=== PATIENT | female | born 1990 | race Caucasian/White ===

== ENCOUNTER 2020-03-24 22:24 | Emergency (ER) | payer OTHER ==
[~2020-03-24] VITALS: Ht 165.1 cm; Wt 74.8 kg
[2020-03-24] MEDS ORDERED: THERA-M CAPLET1 EAC2 PO (22:34)
[2020-03-24 23:06] LABS: AMP/METHAMP POSITIVE (Negative); BARBITURATES Negative (Negative); BENZODIAZEPINES Negative (Negative); COCAINE Negative (Negative); METHADONE Negative (Negative); OPIATES Negative (Negative); PCP Negative (Negative); THC POSITIVE (Negative)
[2020-03-24] MEDS ORDERED: TRAMADOL 50 MG50 MG PO (23:45)
[2020-03-24 23:53] VITALS: BP 127/80
== END 2020-03-24 23:53 | disposition home or self-care (01) ==
LOC: M.ERS 22:24
PROVIDERS: Emergency Medicine
DX: S83.8X1A Sprain of other specified parts of right knee, initial encounter (principal); W17.89XA Other fall from one level to another, initial encounter; Y93.39 Activity, other involving climbing, rappelling and jumping off; Y92.89 Other specified places as the place of occurrence of the external cause; Y99.8 Other external cause status

== ENCOUNTER 2020-10-16 18:33 | Emergency (ER) | payer OTHER ==
[~2020-10-16] VITALS: Ht 165.1 cm; Wt 72.6 kg
[~2020-10-16 18:33] MED LIST: THERA-M CAPLET1 EAC2 PO; TRAMADOL 50 MG50 MG PO
[2020-10-16 18:44] VITALS: BP 122/77
[2020-10-16] MEDS ORDERED: LIDOCAINE VISC100 ML SWISH&SPIT (19:18)
[2020-10-16] MEDS ORDERED: AMOXIL 875 MG875 M1 PO (19:18)
== END 2020-10-16 19:28 | disposition home or self-care (01) ==
LOC: M.ERS 18:33
DX: K04.7 Periapical abscess without sinus (principal); Z98.890 Other specified postprocedural states; Z90.49 Acquired absence of other specified parts of digestive tract